=== PATIENT | female | born 1955 | race Caucasian/White ===

== ENCOUNTER 2021-07-27 23:00 | Inpatient (IN) | payer BC, OTHER, SELFPAY ==
[2021-07-27 23:31] VITALS: BMI 35.9
[2021-07-28] MEDS ORDERED: Morphine 4 MG/ML VIAL SLOW IVP SCH (00:15)
[2021-07-28] MEDS ORDERED: Ondansetron PF 4 MG/2 ML Vial IVP PRN (00:56)
[2021-07-28] MEDS ORDERED: Ondansetron ODT 4 MG TAB PO PRN (00:56)
[2021-07-28] MEDS ORDERED: Acetaminophen 650 MG Suppository PR PRN (00:56)
[2021-07-28] MEDS: Fentanyl 100 MCG/2 ML VIAL SLOW IVP SCH ×2 (01:34→04:01)
[2021-07-28] MEDS: Lorazepam 1 MG TAB PO PRN ×2 (01:35→06:00)
[2021-07-28] MEDS: Ketorolac Tromethamine 30 MG/ML VIAL IVP PRN ×3 (05:59→18:46)
[2021-07-28 06:59] LABS: #Lymphocytes 0.8 thou/uL (1.20-3.40); #Monocytes 0.6 thou/uL (0.11-0.59); #Neutrophils 4.2 thou/uL (1.40-6.50); %Basophils 0.3 % (0.0-1.0); %Eosinophils 0.5 % (0.0-10.0); %Monocytes 9.8 % (0.0-10.0); %Neutrophils 74.4 % (42.0-75.0); Hemoglobin 13.5 g/dL (12.0-16.0); Mean Corpuscular HGB CONC 34.3 g/dL (32.0-36.0); Mean Corpuscular Hemoglobin 34.6 pg (27.0-31.0); Mean Platelet Volume 7.8 fL (7.4-10.4); Platelet Count 133 thou/uL (130-400); RBC Distribution Width 11.5 % (11.5-14.5); Red Blood Cell (RBC) Count 3.89 mill/uL (4.20-5.40); White Blood Cell (WBC) Count 5.6 thou/uL (4.8-10.8)
[2021-07-28 07:17] LABS: Anion Gap 13 mmol/L (10-20); BUN (Urea Nitrogen) 15 mg/dL (9.8-20.1); Calc. Creatinine Clearance 119 mL/min (70-130); Calcium 9.2 mg/dL (7.8-10.44); Carbon Dioxide 28 mmol/L (23-31); Chloride 102 mmol/L (98-107); Glucose 145 mg/dL (80-115); Potassium 4.5 mmol/L (3.5-5.1); Sodium 138 mmol/L (136-145)
[2021-07-28] MEDS ORDERED: Fentanyl 100 MCG/2 ML VIAL SLOW IVP SCH (08:00)
[2021-07-28] MEDS: HYDROcodone/Acetaminophen 10/325 mg Tablet PO PRN ×3 (08:49→21:09)
[2021-07-28] MEDS: traMADol HCl 50 MG TAB PO PRN ×2 (12:02→18:47)
[2021-07-28] MEDS: Acetaminophen 325 MG TAB PO PRN ×2 (12:03→18:47)
[2021-07-28] MEDS ORDERED: Enoxaparin Sodium 40 MG/0.4 ML SYRINGE SC SCH (15:30)
[2021-07-29] MEDS: Ketorolac Tromethamine 30 MG/ML VIAL IVP PRN ×2 (00:26→06:07)
[2021-07-29] MEDS: traMADol HCl 50 MG TAB PO PRN (00:27)
[2021-07-29] MEDS: traZODone HCl 150 MG TAB PO PRN ×2 (00:27→22:51)
[2021-07-29] MEDS: HYDROcodone/Acetaminophen 10/325 mg Tablet PO PRN (05:55)
[2021-07-29 07:28] LABS: Anion Gap 10 mmol/L (10-20); BUN (Urea Nitrogen) 18 mg/dL (9.8-20.1); Calc. Creatinine Clearance 122 mL/min (70-130); Calcium 8.6 mg/dL (7.8-10.44); Carbon Dioxide 28 mmol/L (23-31); Chloride 101 mmol/L (98-107); Glucose 112 mg/dL (80-115); Potassium 4.1 mmol/L (3.5-5.1); Sodium 135 mmol/L (136-145)
[2021-07-29 08:41] LABS: #Eosinphils 0.1 thou/uL (0.0-0.7); #Monocytes 0.3 thou/uL (0.11-0.59); #Neutrophils 2.7 thou/uL (1.40-6.50); %Basophils 0.6 % (0.0-1.0); %Eosinophils 1.3 % (0.0-10.0); %Lymphocytes 23.5 % (21.0-51.0); %Monocytes 7.9 % (0.0-10.0); %Neutrophils 66.6 % (42.0-75.0); Hemoglobin 12.6 g/dL (12.0-16.0); MDiff Complete? YES; Macrocytosis SLIGHT = 6-15 cells (100X) (0-5/hpf); Mean Corpuscular HGB CONC 33.7 g/dL (32.0-36.0); Mean Corpuscular Hemoglobin 34.2 pg (27.0-31.0); Mean Platelet Volume 7.1 fL (7.4-10.4); Platelet Count 108 thou/uL (130-400); Platelet Morphology Comment Appears Decreased; Polychromasia SLIGHT = 2-3 cells (100X) (0-2/hpf); RBC Distribution Width 11.4 % (11.5-14.5); Red Blood Cell (RBC) Count 3.67 mill/uL (4.20-5.40); Stomatocytes SLIGHT = 2-5 cells (100X) (0-1/hpf); White Blood Cell (WBC) Count 4.1 thou/uL (4.8-10.8)
[2021-07-29] MEDS ORDERED: Enoxaparin Sodium 40 MG/0.4 ML SYRINGE SC SCH (09:00)
[2021-07-29] MEDS ORDERED: Clindamycin/D5W 900 MG in Premix Bag 1 BAG IVPB SCH (10:00)
[2021-07-29] MEDS ORDERED: Clindamycin/D5W 900 mg/50 ml Premix Bag ONE (11:34)
[2021-07-29] MEDS ORDERED: Fentanyl 100 MCG/2 ML VIAL ONE (12:00)
[2021-07-29] MEDS ORDERED: Midazolam HCl 2 mg/2 ml Vial ONE (12:00)
[2021-07-29] MEDS ORDERED: Lidocaine 1% PF 5 ML VIAL ONE (13:20)
[2021-07-29] MEDS ORDERED: Ondansetron PF 4 MG/2 ML Vial ONE (13:20)
[2021-07-29] MEDS ORDERED: Dexamethasone 20 MG/5 ML VIAL ONE (13:20)
[2021-07-29] MEDS ORDERED: Ropivacaine 0.5% HCl/PF (150 MG/30 ML VIAL) ONE (13:20)
[2021-07-29] MEDS ORDERED: PROPOFOL 200 MG/20 ML VIAL ONE (13:20)
[2021-07-29] MEDS: Clindamycin/D5W 900 MG in Premix Bag 1 BAG IVPB SCH (20:33)
[2021-07-30] MEDS: Clindamycin/D5W 900 MG in Premix Bag 1 BAG IVPB SCH (04:16)
[2021-07-30 06:15] LABS: Anion Gap 11 mmol/L (10-20); BUN (Urea Nitrogen) 13 mg/dL (9.8-20.1); Calc. Creatinine Clearance 143 mL/min (70-130); Calcium 8.4 mg/dL (7.8-10.44); Carbon Dioxide 27 mmol/L (23-31); Chloride 104 mmol/L (98-107); Glucose 139 mg/dL (80-115); Potassium 4.6 mmol/L (3.5-5.1); Sodium 137 mmol/L (136-145)
[2021-07-30 07:45] LABS: #Lymphocytes 0.9 thou/uL (1.20-3.40); #Monocytes 0.5 thou/uL (0.11-0.59); #Neutrophils 3.7 thou/uL (1.40-6.50); %Basophils 0.3 % (0.0-1.0); %Eosinophils 0.7 % (0.0-10.0); %Lymphocytes 16.7 % (21.0-51.0); %Monocytes 10.3 % (0.0-10.0); Hemoglobin 11.2 g/dL (12.0-16.0); Mean Corpuscular HGB CONC 34.2 g/dL (32.0-36.0); Mean Corpuscular Hemoglobin 34.5 pg (27.0-31.0); Mean Platelet Volume 7.7 fL (7.4-10.4); Platelet Count 122 thou/uL (130-400); RBC Distribution Width 11.3 % (11.5-14.5); Red Blood Cell (RBC) Count 3.26 mill/uL (4.20-5.40); White Blood Cell (WBC) Count 5.2 thou/uL (4.8-10.8)
[2021-07-30] MEDS: Enoxaparin Sodium 40 MG/0.4 ML SYRINGE SC SCH (09:26)
[2021-07-30] MEDS ORDERED: Bisacodyl 5 MG TAB PO PRN (12:34)
[2021-07-30] MEDS ORDERED: Bisacodyl 5 MG TAB PO SCH (12:45)
[2021-07-30] MEDS: HYDROcodone/Acetaminophen 10/325 mg Tablet PO PRN ×2 (13:48→18:21)
[2021-07-30] MEDS: Ketorolac Tromethamine 30 MG/ML VIAL IVP PRN ×2 (15:33→21:25)
[2021-07-30] MEDS: traMADol HCl 50 MG TAB PO PRN (16:56)
[2021-07-30] MEDS ORDERED: Promethazine HCl 25 MG/ML VIAL IM PRN (19:47)
[2021-07-30] MEDS ORDERED: diphenhydrAMINE 50 MG/ML VIAL IVP PRN (19:47)
[2021-07-30] MEDS ORDERED: Naloxone HCl 0.4 mg/ml Vial IV PRN (19:47)
[2021-07-30] MEDS ORDERED: diphenhydrAMINE 25 MG CAP PO PRN (19:47)
[2021-07-30] MEDS ORDERED: Zolpidem Tartrate 5 MG TAB PO PRN (19:47)
[2021-07-30] MEDS ORDERED: Ondansetron PF 4 MG/2 ML Vial IVP PRN (19:47)
[2021-07-30] MEDS ORDERED: diphenhydrAMINE 50 MG/ML VIAL IM PRN (19:47)
[2021-07-30] MEDS ORDERED: Communication Order-Pharmacy FS SCH (20:00)
[2021-07-30] MEDS: Methocarbamol 500 MG TAB PO SCH (21:25)
[2021-07-30] MEDS: Docusate 100 MG CAP PO SCH (21:25)
[2021-07-30] MEDS: fentaNYL Citrate/PF 2,000 MCG in Sodium Chloride 0.9% 60 ML IV PRN (22:51)
[2021-07-31] MEDS: Methocarbamol 500 MG TAB PO SCH ×3 (10:07→20:40)
[2021-07-31] MEDS: Docusate 100 MG CAP PO SCH ×2 (10:08→20:40)
[2021-07-31] MEDS: buPROPion 75 MG TAB PO SCH (10:08)
[2021-07-31] MEDS: Enoxaparin Sodium 40 MG/0.4 ML SYRINGE SC SCH (10:10)
[2021-07-31] MEDS ORDERED: HYDROcodone/Acetaminophen 10/325 mg Tablet PO PRN (11:05)
[2021-07-31] MEDS ORDERED: Magnesium Citrate 300 ML BOT PO SCH (11:15)
[2021-07-31] MEDS: Ketorolac Tromethamine 30 MG/ML VIAL IVP SCH ×2 (12:55→18:30)
[2021-07-31] MEDS: Acetaminophen 325 MG TAB PO SCH ×2 (12:55→18:31)
[2021-07-31] MEDS ORDERED: Polyethylene Glycol 3350 17 GM Packet PO PRN (15:40)
[2021-07-31] MEDS: fentaNYL Citrate/PF 2,000 MCG in Sodium Chloride 0.9% 60 ML IV PRN (18:43)
[2021-08-01] MEDS: Ketorolac Tromethamine 30 MG/ML VIAL IVP SCH ×5 (00:19→23:24)
[2021-08-01] MEDS: Acetaminophen 325 MG TAB PO SCH ×3 (00:20→13:14)
[2021-08-01 05:39] LABS: #Eosinphils 0.1 thou/uL (0.0-0.7); #Lymphocytes 1.2 thou/uL (1.20-3.40); #Monocytes 0.5 thou/uL (0.11-0.59); #Neutrophils 1.9 thou/uL (1.40-6.50); %Basophils 0.3 % (0.0-1.0); %Lymphocytes 32.1 % (21.0-51.0); %Monocytes 13.9 % (0.0-10.0); %Neutrophils 51.6 % (42.0-75.0); Mean Corpuscular HGB CONC 33.5 g/dL (32.0-36.0); Mean Corpuscular Hemoglobin 33.8 pg (27.0-31.0); Mean Platelet Volume 7.5 fL (7.4-10.4); Platelet Count 139 thou/uL (130-400); RBC Distribution Width 11.6 % (11.5-14.5); Red Blood Cell (RBC) Count 3.27 mill/uL (4.20-5.40); White Blood Cell (WBC) Count 3.6 thou/uL (4.8-10.8)
[2021-08-01] MEDS: Polyethylene Glycol 3350 17 GM Packet PO SCH (08:31)
[2021-08-01] MEDS: Docusate 100 MG CAP PO SCH ×2 (08:31→20:55)
[2021-08-01] MEDS: buPROPion 75 MG TAB PO SCH (08:32)
[2021-08-01] MEDS: Enoxaparin Sodium 40 MG/0.4 ML SYRINGE SC SCH (08:33)
[2021-08-01] MEDS: Methocarbamol 500 MG TAB PO SCH ×3 (08:38→20:55)
[2021-08-01] MEDS ORDERED: HYDROcodone/Acetaminophen 10/325 mg Tablet PO PRN ×3 (10:48→21:14)
[2021-08-01] MEDS ORDERED: Calcium Carbonate 500 MG ChewTAB PO PRN (17:30)
[2021-08-01] MEDS ORDERED: Fentanyl 100 MCG/2 ML VIAL SLOW IVP PRN (21:16)
[2021-08-01] MEDS: HYDROcodone/Acetaminophen 10/325 mg Tablet PO PRN (21:49)
[2021-08-02] MEDS: Polyethylene Glycol 3350 17 GM Packet PO SCH (08:48)
[2021-08-02] MEDS: Docusate 100 MG CAP PO SCH ×2 (08:48→20:44)
[2021-08-02] MEDS: Methocarbamol 500 MG TAB PO SCH ×3 (08:48→20:44)
[2021-08-02] MEDS: buPROPion 75 MG TAB PO SCH (08:48)
[2021-08-02] MEDS: Enoxaparin Sodium 40 MG/0.4 ML SYRINGE SC SCH (08:48)
[2021-08-02] MEDS: HYDROcodone/Acetaminophen 10/325 mg Tablet PO PRN ×4 (09:01→21:45)
[2021-08-02] MEDS: Acetaminophen 325 MG TAB PO SCH (10:55)
[2021-08-02] MEDS: Ketorolac Tromethamine 30 MG/ML VIAL IVP SCH ×2 (11:45)
[2021-08-02] MEDS ORDERED: Methylnaltrexone 12 MG/0.6 ML VIAL SC SCH (17:15)
[2021-08-03] MEDS: HYDROcodone/Acetaminophen 10/325 mg Tablet PO PRN ×6 (01:31→22:14)
[2021-08-03] MEDS: buPROPion 75 MG TAB PO SCH (08:55)
[2021-08-03] MEDS: Docusate 100 MG CAP PO SCH (08:55)
[2021-08-03] MEDS: Methocarbamol 500 MG TAB PO SCH ×3 (08:55→21:05)
[2021-08-03] MEDS: Polyethylene Glycol 3350 17 GM Packet PO SCH (08:55)
[2021-08-03] MEDS: Enoxaparin Sodium 40 MG/0.4 ML SYRINGE SC SCH (08:57)
[2021-08-03] MEDS: traZODone HCl 150 MG TAB PO PRN (22:15)
[2021-08-04] MEDS: HYDROcodone/Acetaminophen 10/325 mg Tablet PO PRN ×4 (03:18→17:13)
[2021-08-04 06:16] LABS: #Eosinphils 0.1 thou/uL (0.0-0.7); #Monocytes 0.4 thou/uL (0.11-0.59); #Neutrophils 1.7 thou/uL (1.40-6.50); %Basophils 0.3 % (0.0-1.0); %Eosinophils 2.5 % (0.0-10.0); %Lymphocytes 30.8 % (21.0-51.0); %Monocytes 13.6 % (0.0-10.0); %Neutrophils 52.8 % (42.0-75.0); Hemoglobin 10.4 g/dL (12.0-16.0); Mean Corpuscular HGB CONC 33.4 g/dL (32.0-36.0); Mean Corpuscular Hemoglobin 33.4 pg (27.0-31.0); Mean Platelet Volume 6.9 fL (7.4-10.4); Platelet Count 179 thou/uL (130-400); RBC Distribution Width 11.4 % (11.5-14.5); Red Blood Cell (RBC) Count 3.12 mill/uL (4.20-5.40); White Blood Cell (WBC) Count 3.2 thou/uL (4.8-10.8)
[2021-08-04 06:45] LABS: ALT (SGPT) 19 U/L (8-55); AST (SGOT) 26 U/L (5-34); Albumin 2.8 g/dL (3.4-4.8); Alkaline Phosphatase 59 U/L (40-110); Anion Gap 10 mmol/L (10-20); BUN (Urea Nitrogen) 8 mg/dL (9.8-20.1); Bilirubin, Total 0.5 mg/dL (0.2-1.2); Calc. Creatinine Clearance 158 mL/min (70-130); Calcium 8.6 mg/dL (7.8-10.44); Carbon Dioxide 26 mmol/L (23-31); Chloride 104 mmol/L (98-107); Glucose 104 mg/dL (80-115); Potassium 4.2 mmol/L (3.5-5.1); Protein, Total 4.8 g/dL (5.8-8.1); Sodium 136 mmol/L (136-145)
[2021-08-04] MEDS: Enoxaparin Sodium 40 MG/0.4 ML SYRINGE SC SCH (09:07)
[2021-08-04] MEDS: Methocarbamol 500 MG TAB PO SCH ×2 (09:07→16:09)
[2021-08-04] MEDS: buPROPion 75 MG TAB PO SCH (09:08)
[2021-08-04] MEDS: Polyethylene Glycol 3350 17 GM Packet PO SCH (09:09)
[2021-08-04 15:53] VITALS: BP 136/83; TEMP 97.8
== END 2021-08-04 18:10 | disposition home health service (06) | DRG 493 ==
LOC: INTOOBSV 23:00 → SURG B 23:00 → OBSVTOIN 07-28 16:00
PROVIDERS: ADMIT Student in an Organized Health Care Education/Training Program; ATTEND Family Medicine
PROC: 0QSG04Z Reposition Right Tibia with Internal Fixation Device, Open Approach (ICD-10-PCS; principal; 2021-07-28)
DX: S82.141A Displaced bicondylar fracture of right tibia, initial encounter for closed fracture (principal); M97.11XA Periprosthetic fracture around internal prosthetic right knee joint, initial encounter; E87.1 Hypo-osmolality and hyponatremia; W18.30XA Fall on same level, unspecified, initial encounter; G89.29 Other chronic pain; R51.9 Headache, unspecified; M19.90 Unspecified osteoarthritis, unspecified site; Z96.641 Presence of right artificial hip joint; Z96.653 Presence of artificial knee joint, bilateral; E66.9 Obesity, unspecified; D64.9 Anemia, unspecified; K59.00 Constipation, unspecified; R21 Rash and other nonspecific skin eruption; Z88.1 Allergy status to other antibiotic agents; Z88.0 Allergy status to penicillin; Z68.35 Body mass index [BMI] 35.0-35.9, adult
CPT/HCPCS: 36415; 76000; 80048; 80053; 85025; 96372; 96374; 96375; 96376; C1713; G0378; J1100; J1650; J1885; J2250; J2270; J2405; J2704; J2795; J3010; J3490

== ENCOUNTER 2021-10-24 09:01 | Outpatient (CLI) | payer BC | END 2021-10-24 09:02 | disposition home or self-care (01) | LOC: TBSIIMAG 09:01 | PROVIDERS: ATTEND Orthopaedic Surgery | DX: M25.571 Pain in right ankle and joints of right foot (principal); S93.401A Sprain of unspecified ligament of right ankle, initial encounter; R60.0 Localized edema; M62.571 Muscle wasting and atrophy, not elsewhere classified, right ankle and foot ==